=== PATIENT | female | born 1935 | race Caucasian/White ===

== ENCOUNTER 2018-03-21 04:53 | Emergency (ER) | payer OTHER ==
--- NOTE | 2018-03-21 05:17 | CPEKG ---
Heart Rate: 73 RR Interval: 822 P-R Interval: 212 QRSD Interval: 84 QT Interval: 400 QTC Interval: 441 P [place]: 71 QRS [place]: -25 T Wave [place]: 12 EKG Severity - ABNORMAL ECG - EKG Impression: SINUS RHYTHM EKG Impression: PROBABLE INFERIOR INFARCT, AGE INDETERMINATE Electronically Signed By: Jaime Goodwin 22-Mar-2018 16:51:47
[2018-03-21] MEDS ORDERED: NS 500 ML IV ONE (05:30)
--- NOTE | 2018-03-21 05:30 | EDPHY ---
H & P Stated Complaint: pt feels like having palpitations, hx of afib, mild nausea Time Seen by Provider: 03/21/18 05:15 HPI/ROS: HPI The patient presents with palpitations which began at about 3:30 a.m. This morning and have now resolved. She was feeling well when she went to bed last night. [place] She woke at 3:30 a.m. To go to the bathroom and then began to feel flushed and had palpitations. She also thought her speech sounded garbled. This was associated with mild nausea. Her symptoms gradually subsided over the next 30 min to 1 hr. She now feels somewhat shaky. She wonders if she could be dehydrated. She does have a history of atrial fibrillation and takes Coumadin and diltiazem for this. She has had multiple similar previous episodes involving palpitations , flushing, garbled speech. The last episode was in December while she was at a restaurant. She has been seen by her supervisor gluing and neurologist as well as her primary care doctor for these episodes. She had EEG, carotid ultrasound, MRI of brain, echocardiograph the which were all unremarkable in November of this year. She has been advised to take a baby aspirin daily and she has been compliant with this. REVIEW OF SYSTEMS Constitutional: No fever, no chills. Eyes: No discharge. ENT: No sore throat. Cardiovascular: No chest pain, no palpitations. Respiratory: No cough, no shortness of breath. Gastrointestinal: No abdominal pain, no vomiting. Genitourinary: No hematuria. Musculoskeletal: No back pain. Skin: No rashes. Neurological: No headache. PMHx: History of atrial fibrillation on Coumadin and diltiazem, hyperlipidemia Soc Hx: Visiting family from [place] PHYSICAL General Appearance: Alert, no distress Eyes: Pupils equal and round no pallor or injection ENT, Mouth: Mucous membranes moist Respiratory: There are no retractions, lungs are clear to auscultation Cardiovascular: Regular rate and rhythm Gastrointestinal: Abdomen is soft and non-tender, no masses, bowel sounds normal Neurological: Alert and oriented x3, cranial nerves 2-12 intact, 5/5 strength in her upper and lower extremities which is symmetric, normal finger to nose testing, speech is fluid Skin: Warm and dry, no rashes Musculoskeletal: Neck is supple non tender Extremities: symmetrical, full range of motion Psychiatric: Patient is oriented X 3, there is no agitation Source: Patient Exam Limitations: No limitations - Medical/Surgical History Hx Asthma: No Hx Chronic Respiratory Disease: No Hx Diabetes: No Hx Cardiac Disease: Yes Hx Renal Disease: No Hx Cirrhosis: No Hx Alcoholism: No Hx HIV/AIDS: No Hx Splenectomy or Spleen Trauma: No Other PMH: afib, hyperlipidemia, csection, R knee replace, cholecystectomy, orif R elbow, bilat carpal tunnel surg, trigger release bilat thumbs, hemmorhoid surg, nasal surg - Social History Smoking Status: Never smoked Constitutional: Initial Vital Signs Temperature (C) 36.4 C 03/21/18 04:58 Heart Rate 79 03/21/18 04:58 Respiratory Rate 18 03/21/18 04:58 Blood Pressure 182/93 H 03/21/18 04:58 O2 Sat (%) 91 L 03/21/18 04:58 O2 Delivery Mode Room Air Allergies/Adverse Reactions: narcotic pain meds Adverse Reaction (Uncoded 03/21/18 05:06) Home Medications: Medication Instructions Recorded Atorvastatin Calcium 03/21/18 Cardizem 03/21/18 Coumadin 03/21/18 Medical Decision Making - Diagnostics EKG Interpretation: EKG: Complete interpretation has been separately recorded in the [facility] archive. Summary impression: Normal sinus rhythm Differential Diagnosis: This is an 82-year-old female with history of atrial fibrillation who presents with palpitations, dizziness, garbled speech, weakness which she noticed at 3: 30 a.m. When she awoke to use the bathroom. Here, she is slightly hypertensive though is in a normal sinus rhythm with a normal neurologic evaluation. It seems that she has been previously evaluated for multiple prior episodes. Her workup has included MRI of the brain, EEG, carotid ultrasound, echo which have all been unremarkable. This makes TIA, CVA unlikely at this time. She now complains of some mild shakiness though has full strength on exam. She could have had an episode of atrial fibrillation with RVR and is now spontaneously converted to normal sinus rhythm. She could also be experiencing electrolyte disturbance, dehydration, ACS. Plan to check basic labs, EKG, give a dose of IV fluid. Patient was monitored here on telemetry with no events. Labs and EKG were unremarkable. She received a dose of IV fluid and also drink water. She is feeling much better on reassessment. I plan to discharge her and I have discussed return precautions. She is happy with this plan. - Data Points Laboratory Results: Laboratory Results 03/21/18 05:41 03/21/18 05:41 Medications Given: Discontinued Medications Sodium Chloride (Ns) 500 mls @ 1,000 mls/hr IV EDNOW ONE PRN Reason: Protocol Stop: 03/21/18 05:59 Last Admin: 03/21/18 05:40 Dose: 500 mls Point of Care Test Results: Chemistry 03/21/18 05:43 POC Troponin I 0.00 ng/mL ng/mL (0.00-0.08) Departure - Departure Disposition: Home, Routine, Self-Care Clinical Impression: Palpitations Condition: Good Instructions: Heart Palpitations (ED) Additional Instructions: Please return to the emergency department if you are worse in any way. Please make sure to drink plenty of fluids. Referrals: NONE *PRIMARY CARE P,. [Primary Care Provider] - As per Instructions
[2018-03-21 06:03] LABS: PLATELET COUNT 268 10^3/uL (150-400)
[2018-03-21 07:24] VITALS: BP 125/86
== END 2018-03-21 07:21 | disposition home or self-care (01) ==
DX: R00.2 Palpitations (principal); E86.9 Volume depletion, unspecified; Z79.01 Long term (current) use of anticoagulants
CPT/HCPCS: 84484-PO